=== PATIENT | female | born 1990 | race American Indian/Alaskan Native ===

== ENCOUNTER 2021-11-01 11:45 | Emergency (ER) | payer MEDICAID, OTHER ==
[2021-11-01 11:54] VITALS: BP 134/73
[2021-11-01] MEDS ORDERED: fentaNYL 100 MCG/2 ML INJ IV ONE (12:08)
[2021-11-01] MEDS: SODIUM CHLORIDE 0.9% 1000 ML 1,000 ML IV ONE ×2 (12:23→14:18)
--- NOTE | 2021-11-01 12:24 | Emergency Department Report ---
ED General Adult HPI - General Chief complaint: Pain General Stated complaint: LT SIDE PAIN Time Seen by Provider: 11/01/21 12:01 Source: patient Mode of arrival: Ambulatory Limitations: No Limitations - History of Present Illness Initial comments: Patient presents with a 2-day history of left-sided rib pain. She states that she initially thought she might of pinched nerve because she slept wrong. She was having pain in the left shoulder and left rib area. Over the last 2 days, the pain is worsened. She tried ibuprofen without symptomatic improvement. The pain is in the left rib and left shoulder area. It does not migrate. It is only left-sided. The pain is pleuritic. She states that she does feel short of breath with exertion. She has had no cough or congestion. She has had no fevers or chills. There is no history of recent travel or trauma. She denies pain or swelling in the legs. She is never had symptoms of this nature before. Patient has no arm pain. She does admit that she is a smoker and is on control. - Related Data Previous Rx's Medication Instructions Recorded Last Taken Type Fluticasone [Flonase] 1 spray NS QDAY #1 bottle 08/21/15 Unknown Rx Promethazine /Codeine 5 ml PO Q6H PRN #150 ml 09/03/15 Unknown Rx [Phenergan/Codeine 6.25-10 mg/5 ml] Sulfamethoxazole/Trimethoprim 1 each PO BID #20 tablet 09/03/15 Unknown Rx [Bactrim DS TAB] Ibuprofen [Motrin 800 MG tab] 800 mg PO Q8HR PRN #30 tablet 10/14/15 Unknown Rx Loratadine (Nf) [Claritin (Nf)] 10 mg PO DAILY #30 tablet 10/14/15 Unknown Rx Prednisone [predniSONE 10 mg 10 mg PO .TAPER #1 tab.ds.pk 10/14/15 Unknown Rx (6-Day Pack, 21 Tabs)] guaiFENesin/CODEINE [Robitussin AC] 5 ml PO Q6HR PRN #120 ml 10/14/15 Unknown Rx Allergies Allergy/AdvReac Type Severity Reaction Status Date / Time No Known Allergies Allergy Unverified 08/21/15 08:46 ED Review of Systems ROS: Stated complaint: LT SIDE PAIN Other details as noted in HPI Comment: All other systems reviewed and negative Constitutional: denies: fever Eyes: denies: vision change ENT: denies: throat pain Respiratory: see HPI. denies: cough Cardiovascular: as per HPI Endocrine: denies: unexplained weight loss Gastrointestinal: denies: abdominal pain Genitourinary: denies: dysuria Musculoskeletal: as per HPI Skin: denies: rash Neurological: denies: headache Hematological/Lymphatic: denies: easy bruising ED Past Medical Hx - Past Medical History Previous Medical History?: Yes Additional medical history: OBESITY - Surgical History Past Surgical History?: Yes Additional Surgical History: - Family History Family history: no significant - Social History Smoking Status: Current Every Day Smoker (We tobacco cessation.) Substance Use Type: None - Medications Home Medications: Home Medications Medication Instructions Recorded Confirmed Last Taken Type Fluticasone [Flonase] 1 spray NS QDAY #1 bottle 08/21/15 Unknown Rx Promethazine /Codeine 5 ml PO Q6H PRN #150 ml 09/03/15 Unknown Rx [Phenergan/Codeine 6.25-10 mg/5 ml] Sulfamethoxazole/Trimethoprim 1 each PO BID #20 tablet 09/03/15 Unknown Rx [Bactrim DS TAB] Ibuprofen [Motrin 800 MG tab] 800 mg PO Q8HR PRN #30 tablet 10/14/15 Unknown Rx Loratadine (Nf) [Claritin (Nf)] 10 mg PO DAILY #30 tablet 10/14/15 Unknown Rx Prednisone [predniSONE 10 mg 10 mg PO .TAPER #1 tab.ds.pk 10/14/15 Unknown Rx (6-Day Pack, 21 Tabs)] guaiFENesin/CODEINE [Robitussin AC] 5 ml PO Q6HR PRN #120 ml 10/14/15 Unknown Rx ED Physical Exam - General Limitations: No Limitations, Other (Pulse ox noted and normal) General appearance: alert, in distress (Moderate discomfort), obese - Head Head exam: Present: atraumatic, normocephalic - Eye Eye exam: Present: normal appearance, PERRL, EOMI. Absent: scleral icterus - ENT ENT exam: Present: normal orophraynx, normal external ear exam - Neck Neck exam: Present: normal inspection. Absent: meningismus - Respiratory Respiratory exam: Present: normal lung sounds bilaterally. Absent: respiratory distress - Cardiovascular Cardiovascular Exam: Present: normal rhythm, tachycardia - GI/Abdominal GI/Abdominal exam: Present: soft. Absent: distended, tenderness - Extremities Exam Extremities exam: Present: normal capillary refill. Absent: pedal edema, calf tenderness - Back Exam Back exam: Absent: CVA tenderness (R), CVA tenderness (L) - Neurological Exam Neurological exam: Present: alert, oriented X3, CN II-XII intact, normal gait. Absent: motor sensory deficit - Psychiatric Psychiatric exam: Present: normal affect, normal mood - Skin Skin exam: Present: warm, dry ED Course Vital Signs 11/01/21 11/01/21 11:51 12:16 Temperature 99.7 F H Pulse Rate 131 H Respiratory 18 20 Rate Blood Pressure 134/73 O2 Sat by Pulse 96 Oximetry - Reevaluation(s) Reevaluation #1: 11/01/21 12:21 IV and labs were ordered. CT angiogram was ordered to evaluate for pulmonary embolism as the patient is not a low risk patient. D-dimer would not be indicated. Patient is here with pleuritic chest pain in the setting of tobacco use and control use. 11/01/21 12:23 She is tachycardic so PERC criteria cannot be applied. Reevaluation #2: 11/01/21 13:25 CBC was noted. Patient was not . Further labs have been added on. Further hydration has been ordered. CT is pending. Reevaluation #3: 11/01/21 13:51 Labs and angiogram are pending. Care was signed out. ED Medical Decision Making - Lab Data Result diagrams: 11/01/21 12:30 11/01/21 12:30 Rhythm strip: Sinus tachycardia without ectopy per monitor observe 10 seconds. - Medical Decision Making Patient presented with left flank pain. This was pleuritic in nature. She was tachycardic. She does use control and smoke. She is obese. She is at risk for PE. CT angiogram has been ordered and is pending. She does have leukocytosis of uncertain etiology with tachycardia. She certainly could have a pyelonephritis or pneumonia. Lactate and UA are currently pending. Care was signed out pending test results and disposition. Critical Care Time: No Critical care attestation.: If time is entered above; I have spent that time in minutes in the direct care of this critically ill patient, excluding procedure time. ED Disposition Clinical Impression: Left-sided chest pain, Pleuritic chest pain, Tobacco abuse Leukocytosis Qualifiers: Leukocytosis type: unspecified Qualified Code(s): D72.829 - Elevated white blood cell count, unspecified Disposition: 30 STILL A PATIENT Is pt being admited?: No Condition: Stable Instructions: Nonspecific Chest Pain, Adult
[2021-11-01 13:04] LABS: Hematocrit 37.9 % (30.3-42.9); Hemoglobin 12.2 gm/dl (10.1-14.3); Mean Corpuscular HGB Conc 32 % (30-34); Mean Corpuscular Volume 92 fl (79-97); Platelet Count 365 K/mm3 (140-440); Red Blood Count 4.12 M/mm3 (3.65-5.03); Red Cell Distribution Width 13.5 % (13.2-15.2)
[2021-11-01 13:24] LABS: BUN/Creatinine Ratio 6; Blood Urea Nitrogen 5 mg/dL (7-17); Calcium 8.7 mg/dL (8.4-10.2); Hemolysis Index 12
[2021-11-01] MEDS ORDERED: SODIUM CHLORIDE 0.9% 1000 ML 1,000 ML IV ONE (13:25)
--- NOTE | 2021-11-01 14:21 | Cat Scan Report ---
CTA CHEST WITH CONTRAST INDICATION / CLINICAL INFORMATION: Left pleuritic pain, smoker, control, pe. TECHNIQUE: Axial CT images were obtained through the chest after injection of 100 cc of Omnipaque 350 IV contrast. 3 plane MIP and/or 3D reconstructions were produced. All CT scans at this location are performed using CT dose reduction for ALARA by means of automated exposure control. COMPARISON: None available. FINDINGS: PULMONARY ARTERIES: No pulmonary emboli. THORACIC AORTA: No significant abnormality. HEART: No significant abnormality. CORONARY ARTERY CALCIFICATION: None. MEDIASTINUM / MAX: No significant abnormality. PLEURA: No pleural effusion. No pneumothorax. LUNGS: Increased consolidation within the left lower lobe. ADDITIONAL FINDINGS: None. UPPER ABDOMEN: No acute findings. SKELETAL STRUCTURES: No significant osseous abnormality. IMPRESSION: 1. No CT evidence for pulmonary embolism. 2. Increased consolidation within the left lower lobe suggesting pneumonia. Signer Name: Lawson Millard DO Signed: 11/01/2021 2:16 PM Workstation Name: [id number]
[2021-11-01 17:19] LABS: Bilirubin,Urine NEG (Negative); Blood,Urine MOD (Negative); Color,Urine Straw (Yellow); Protein,Urine <15 mg/dL mg/dL (Negative); Urobilinogen,Urine < 2.0 mg/dL (<2.0)
[2021-11-01] MEDS ORDERED: ACETAMINOPHEN 500 MG TAB PO ONE (18:18)
--- NOTE | 2021-11-02 09:39 | Electrocardiograph Report ---
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
== END 2021-11-01 19:28 | disposition home or self-care (01) ==
LOC: ED 11:45
DX: R07.89 Other chest pain (principal); R07.81 Pleurodynia; Z72.0 Tobacco use; D72.829 Elevated white blood cell count, unspecified
CPT/HCPCS: 36415; 71275; 80048; 81001; 82140; 84703; 85027; 93005; 93010; 96361; 96365; 96375; 99284; J1956; J3010; J7030; Q9967; Q0162